=== PATIENT | male | born 1940 | race Caucasian/White ===

== ENCOUNTER 2018-10-11 07:08 | Inpatient (IN) ==
--- NOTE | 2018-09-19 17:29 | PAT Medication Instructions ---
Medication Instructions Date of Service September 19, 2018 Home Medications aspirin 81 mg PO QPM doxycycline hyclate 100 mg PO BID fluticasone [Flonase] 1 spray INTRANASAL BID glimepiride 4 mg PO QAM insulin detemir U-100 [Levemir] 35 unit SUBCUT BID lisinopril 30 mg PO QPM metformin 1,000 mg PO BID naproxen sodium [Aleve] 1 - 2 tab PO QAM ASK your surgeon for instructions naproxen sodium [Aleve] 1 - 2 tab PO QAM DO NOT take the morning of surgery glimepiride 4 mg PO QAM metformin 1,000 mg PO BID Take morning of surgery With a small sip of water, OTHERWISE NOTHING TO EAT OR DRINK AFTER MIDNIGHT: doxycycline hyclate 100 mg PO BID fluticasone [Flonase] 1 spray INTRANASAL BID Take evening before surgery aspirin 81 mg PO QPM doxycycline hyclate 100 mg PO BID fluticasone [Flonase] 1 spray INTRANASAL BID insulin detemir U-100 [Levemir] 35 unit SUBCUT BID lisinopril 30 mg PO QPM metformin 1,000 mg PO BID Insulin Dependent Diabetic Patients * Test your blood sugar the morning of surgery * If Blood Sugar is GREATER THAN 150, take HALF of your regular dose of: insulin detemir U-100 [Levemir] * If Blood Sugar is LESS THAN 150, DO NOT TAKE ANY: insulin detemir U-100 [Levemir] Other Notes If you have any questions please call us at [phone] or [phone] or [phone] or [phone]
--- NOTE | 2018-09-20 13:30 | Anesthesiology Consultation ---
Date of Service September 20, 2018 Assessment & Plan (1) Encounter for pre-operative examination: - Cardio note= 09/25/18= "EKG is unchanged from 2015. ECHO done 04/10/18 shows EF 45-50%, mod-severe with mod-severe AR (MG 41, CHAVEZ 0.6cm2), mild MR per Dr. Alex- pt cleared for surgery." Cardio monitoring valvular disease; no indication for valve repair/surgery at this time. - Check BSG AM DOS Chart Review Chart Review: Acceptable Risk for Surgery and Patient seen in Pre Admission Testing Teaching & Discussion Pre-Anesthesia Teaching/Discussion Notes: Instructed NPO after midnight before s urgery,except medications with 15 cc of water. Medication instructions provided according to the PAT guidelines. History Surgery Operation Date: 10/11/18 07:45 Proposed Procedures p L2-L4 Decompression and Fusion - Lalo Montano DO Height/Weight Height: 5 ft 7.5 in Weight: 80.2 kg Allergies Allergy/AdvReac Type Severity Reaction Status Date / Time Penicillins Allergy Intermediate Hives Verified 09/16/18 09:46 Medications Home Medications Medication Instructions Recorded Confirmed Last Taken aspirin 81 mg PO QPM 09/16/18 09/16/18 Unknown doxycycline hyclate 100 mg PO BID 09/16/18 09/16/18 Unknown fluticasone propionate [Flonase 1 spray INTRANASAL BID 09/16/18 09/16/18 Unknown Allergy Relief] glimepiride 4 mg PO QAM 09/16/18 09/16/18 Unknown insulin detemir U-100 [Levemir 35 unit SUBCUT BID 09/16/18 09/16/18 Unknown U-100 Insulin] lisinopril 30 mg PO QPM 09/16/18 09/16/18 Unknown metformin 1,000 mg PO BID 09/16/18 09/16/18 Unknown naproxen sodium [Aleve] 1 - 2 tab PO QAM 09/16/18 09/16/18 Unknown Past Medical History Medical History Aortic regurgitation Moderate to severe AR per 04/2018 ECHO Aortic stenosis Moderate to severe aortic stenosis (CHAVEZ 0.6cm2, MG 41mmhg) per 04/2018 ECHO Bifascicular block CHRONIC PER CARDIO CAD (coronary artery disease) NON-OBSTRUCTIVE Degenerative disc disease Diabetes mellitus, type 2 IDDM Hypertension Osteoarthritis Past Family History Family History Father Family history of diabetes mellitus Son Family history of diabetes mellitus Mother Family history of diabetes mellitus Grandmother (Paternal) No problems noted. Grandmother (Maternal) Family history of diabetes mellitus Past Surgical History Surgical History History of appendectomy History of cardiac cath 2016= NO STENTS History of ear surgery LEFT EAR DRUM REPAIR History of tonsillectomy History of tooth extraction Past Anesthesia History No Hx of Anesthesia Complications and No Family Hx of Anesthesia Complications History of PONV No Motion Sickness Screening History of Motion Sickness: No Social History Smoking Status: Never smoker Do You Dip or Chew Tobacco: Yes (1 CAN/WEEK- NOT TO CHEW AM DOS) Hx Alcohol Use: No Hx Substance Use: No substance use type: does not use Exercise / Class Metabolic Activity III < 4 Walking/Shop/Light housework (USES CANE/WALKER PRN) Review of Systems Patient reports LBP. B/L LE neuropathy. Sinusitis/URI symptoms improving- on doxycycline (to be completed prior to surgery). Patient denies chest pain, shortness of breath, wheezing, palpitations. Physical Exam Vital Signs VITALS BP 102/65 P 91 TEMP 97.5 SP02 95%RA RESP 18 PHYSICAL Full neck and c-spine range of motion. Full TMJ range of motion. TMD 3 finger breaths Mallampati Score 3 Dentition: full dentures upper/lower; edentulous Lungs: clear throughout to auscultation Cardiac: regular rate and rhythm, I-II/ systolic murmur Spine: normal Carotid arteries: negative bruit Extremities: no edema Trimmed wei Testing Electrocardiogram Date: 09/20/18 NSR at 92bpm. RBBB/LAFB. *Bifasicular block*, Moderate voltage criteria for LVH, may be normal variant. Chest X-Ray Date: 09/20/18 Echocardiogram Date: 04/10/18 LVEF 45-50%. Moderate to severe aortic regurgitation. Moderate to severe aortic stenosis (CHAVEZ 0.6cm2, MG 41mmhg). Mild MR. Consistent with LVH. Abnormal septal wall consistent with abnormal electrical activation. Dilated ascending aorta. Grade I DD. Stress Test Date: 07/24/16 Type: exercise LVEF 45-50%. Positive EKG for ischemia. Severe symptomatic aortic stenosis with rest MG 41mmhg increased to 69mmhg with exercise. 4 METS. Subsequent cardiac cath done 1/27/17 Cardiac Catheterization Date: 08/04/16 LVEF 55%. Normal right heart cath. Mild nonobstructive CAD. Moderate to severe aortic stenosis Medical management recommended by cardio* Laboratory Results 09/20/18 13:57 09/20/18 13:57 Blood Type AB Positive 09/20/18 13:57 Antibody Screen NEGATIVE 09/20/18 13:57 PT 11.3 Seconds (9.0-12.0) 09/20/18 13:57 INR 1.1 (0.9-1.1) 09/20/18 13:57 APTT 24.8 Seconds (21.0-31.0) 09/20/18 13:57 Hemoglobin A1c 7.8 % (4.5-5.6) H 09/20/18 13:57 Urine Color Dark Yellow 09/20/18 Unknown Urine Appearance Clear (Clear) 09/20/18 Unknown Urine pH 5.0 (4.5-7.5) 09/20/18 Unknown Ur Specific [place] 1.025 (1.000-1.030) 09/20/18 Unknown Urine Protein Trace (Negative) H 09/20/18 Unknown Urine Glucose (UA) Negative (Negative) 09/20/18 Unknown Urine Ketones Negative (Negative) 09/20/18 Unknown Urine Nitrite Negative (Negative) 09/20/18 Unknown Ur Leukocyte Esterase Negative (Negative) 09/20/18 Unknown Urine WBC (Auto) 1-5 /hpf (0-5) 09/20/18 Unknown Urine RBC (Auto) 5-10 /hpf (0-4) H 09/20/18 Unknown U Hyaline Cast (Auto) 5-10 /lpf (0-5) H 09/20/18 Unknown U Epithel Cells (Auto) 5-10 /lpf (0-5) H 09/20/18 Unknown Urine Bacteria (Auto) Negative (Negative) 09/20/18 Unknown Surgeon made aware of elevated HGBA1C
[2018-09-20 14:19] LABS: Basophils # (auto) 0.03 K/uL (0-0.2); Basophils % (auto) 0.4 %; Eosinophils # (auto) 0.05 K/uL (0-0.5); Eosinophils % (auto) 0.6 %; Hematocrit (blood only) 37.9 % (42-52); Hemoglobin 12.7 g/dL (14.0-18.0); Immature Granulocytes # (auto) 0.03 K/uL (0.00-0.02); Immature Granulocytes % (auto) 0.4 %; Lymphocytes # (auto) 1.03 K/uL (1.2-3.4); Lymphocytes % (auto) 12.9 %; Mean Corpuscular Hgb Conc 33.5 g/dL (32-36); Mean Corpuscular Volume 90.9 fL (80-100); Mean Platelet Volume 9.1 fL (7.4-10.4); Monocytes # (auto) 0.75 K/uL (0.11-0.59); Monocytes % (auto) 9.4 %; Neutrophils # (auto) 6.08 K/uL (1.4-6.5); Neutrophils % (auto) 76.3 %; Platelet Count 226 K/uL (130-400); RDW Coefficient of Variation 14.2 % (11.5-14.5); RDW Standard Deviation 47.3 fL (36.4-46.3); Red Blood Count 4.17 M/uL (4.7-6.1); White Blood Count 7.97 K/uL (4.8-10.8)
--- NOTE | 2018-09-20 14:24 | XRay Report ---
XR chest Pre-admission PA/Lat CLINICAL HISTORY: 77 years-old Male presenting with preoperative evaluation. TECHNIQUE: PA and lateral views of the chest were obtained. COMPARISON: None. FINDINGS: Cardiomediastinal silhouette normal. Lungs and pleural spaces clear. Degenerative changes of the thor acic spine. Upper abdomen normal. IMPRESSION: 1. No acute cardiopulmonary disease. Electronically signed by: Richar Suarez M.D. 09/20/2018 2:23 PM
[2018-09-20 14:26] LABS: BUN Creatinine Ratio 19.9 (10-20); Calcium 9.1 mg/dl (8.5-10.1); Est GFR (African American) 87.9; Est GFR (Non-African American) 75.8; Potassium 4.6 mmol/L (3.5-5.1)
[2018-09-20 14:34] LABS: INR 1.1 (0.9-1.1); Partial Thromboplastin Ratio 0.9; Partial Thromboplastin Time 24.8 Seconds (21.0-31.0); Prothrombin Time 11.3 Seconds (9.0-12.0)
[2018-09-20 14:53] LABS: Appearance Urine Clear (Clear); Bacteria Urine Automated Negative (Negative); Bilirubin Urine Negative (Negative); Blood Urine Negative (Negative); Color Urine Dark Yellow; Glucose Urine UA Negative (Negative); Ketones Urine Negative (Negative); Leukocyte Esterase Urine Negative (Negative); Nitrite Urine Negative (Negative); Protein Urine Trace (Negative); Specific Gravity Urine 1.025 (1.000-1.030); Urobilinogen Urine Negative (Negative)
[2018-09-20 14:59] LABS: Estimated Average Glucose 177 mg/dl; Hemoglobin A1C 7.8 % (4.5-5.6)
[~2018-10-11 07:08] MED LIST: ACETAMINOPHEN 500 MG TAB PO SCH; CLINDAMYCIN 600 MG/54 ML BAG IV SCH; CeleBREX 200 MG CAP PO SCH; GABAPENTIN 300 MG PO SCH; LR 15ML/HR IV SCH
[2018-10-11] MEDS ORDERED: fentaNYL citrate 100 MCG/2 ML VIAL ONE ×2 (08:14→11:32)
--- NOTE | 2018-10-11 09:06 | History & Physical Bridge Note ---
Date of Service October 11, 2018 History & Physical Bridge Note I have examined the patient, reviewed the History & Physical and in the interval since the performance of the History & Physical I have noted the following changes of clinical significance: no changes noted
--- NOTE | 2018-10-11 09:07 | History & Physical Report ---
Date of Service October 11, 2018 Assessment & Plan (1) Spinal stenosis, lumbar region with neurogenic claudication: L2-L4 decompression and fusion Present on Admission?: Yes History of Present Illness Chief Complaint: Back and leg pain Primary Care Provider: Roberto Dunham MD Presents with chronic persistent back and leg pain. After failing extensive course of nonoperative care is here for surgical intervention. Allergies Allergy/AdvReac Type Severity Reaction Status Date / Time Penicillins Allergy Intermediate Hives Verified 10/11/18 07:56 Home Medications Home Medications Medication Instructions Recorded Confirmed Type aspirin 81 mg PO QPM 09/16/18 10/11/18 History fluticasone propionate [Flonase 1 spray INTRANASAL BID 09/16/18 10/11/18 History Allergy Relief] glimepiride 4 mg PO QAM 09/16/18 10/11/18 History insulin detemir U-100 [Levemir 35 unit SUBCUT BID 09/16/18 10/11/18 History U-100 Insulin] lisinopril 30 mg PO QPM 09/16/18 10/11/18 History metformin 1,000 mg PO BID 09/16/18 10/11/18 History naproxen sodium [Aleve] 1 - 2 tab PO QAM 09/16/18 10/11/18 History Fish Oil 1 cap PO BID 10/11/18 10/11/18 History Past Med/Surg History Family History Father Family history of diabetes mellitus Son Family history of diabetes mellitus Mother Family history of diabetes mellitus Grandmother (Paternal) No problems noted. Grandmother (Maternal) Family history of diabetes mellitus Social History Preferred Language: Tristanian Communication Ability: Effective Cycle Touring Guide Required: No Beliefs That Will Affect Care: None Current Living Situation: Spouse Other Information That Helps Us Care for You: No Feels Safe at Home: Yes Safety Concerns: Feels Safe At This Time Smoking Status: Never smoker Hx Alcohol Use: No Hx Substance Use: No Physical Exam Vital Signs (Past 24 Hours): Last Vital Signs Temp 36.8 C 10/11/18 07:35 Pulse 78 10/11/18 07:35 Resp 20 10/11/18 07:35 BP 138/63 10/11/18 07:35 Pulse Ox 98 10/11/18 07:35 Results & Data Medications Administered Acetaminophen (Tylenol) 1,000 mg PO PREOP ANSHU Stop: 10/11/18 18:00 Last Admin: 10/11/18 08:32 Dose: 1,000 mg Documented by: [id number] Celecoxib (Celebrex) 200 mg PO PREOP ANSHU Stop: 10/11/18 18:00 Last Admin: 10/11/18 08:32 Dose: 200 mg Documented by: [id number] Gabapentin (Neurontin) 300 mg PO PREOP ANSHU Stop: 10/11/18 18:00 Last Admin: 10/11/18 08:32 Dose: 300 mg Documented by: [id number] Lactated Ringer's (Lr) 1,000 mls @ 15 mls/hr IV .Q24H ANSHU Stop: 10/12/18 05:59 Last Admin: 10/11/18 08:13 Dose: 15 mls/hr Documented by: [id number]
[2018-10-11] MEDS ORDERED: BUPIVACAINE/EPINEPHRINE 0.5% MPF 1:200,000 30 ML VIAL ONE (09:17)
[2018-10-11] MEDS ORDERED: BACITRACIN INJ 50,000 UNIT VIAL ONE (09:17)
[2018-10-11] MEDS ORDERED: FLOSEAL HEMOSTATIC MATRIX 10ML TOP ONE (10:13)
[2018-10-11] MEDS ORDERED: ALBUMIN HUMAN 5% 12.5 GM/250 ML VIAL IV ONE (10:13)
[2018-10-11] MEDS ORDERED: ePHEDrine sulfate 50 MG/ML AMP IV PRN (10:13)
[2018-10-11] MEDS ORDERED: fentaNYL citrate 100 MCG/2 ML VIAL IV PRN (10:13)
[2018-10-11] MEDS ORDERED: HYDROmorphone INJ 2 MG/ML SYR/VIAL IV PRN (10:13)
[2018-10-11] MEDS ORDERED: ATROPINE SULFATE 0.1 MG/ML 10ML SYR IV PRN (10:13)
[2018-10-11] MEDS ORDERED: ROCURONIUM BROMIDE 10 MG/ML 5 ML VIAL ONE (10:21)
[2018-10-11] MEDS ORDERED: ONDANSETRON INJ 2 MG/ML 2 ML VIAL ONE (10:21)
[2018-10-11] MEDS ORDERED: PHENYLEPHRINE 100MCG/ML 5ML SYR ONE (10:21)
[2018-10-11] MEDS ORDERED: NEOSTIGMINE METHYLSULFATE 1 MG/ML 10ML VIAL ONE (10:21)
[2018-10-11] MEDS ORDERED: ePHEDrine sulfate 50 MG/ML SYR ONE (10:21)
[2018-10-11] MEDS ORDERED: DEXAMETHASONE SOD INJ 4 MG/ML VIAL ONE (10:21)
[2018-10-11] MEDS ORDERED: LIDOCAINE HCL 2% 2 ML VIAL/AMP(20MG/ML) INFIL ONE (10:21)
[2018-10-11] MEDS ORDERED: PHENYLEPHRINE HCL 10 MG/ML VIAL ONE (10:21)
[2018-10-11] MEDS ORDERED: GLYCOPYRROLATE 0.2 MG/ML VIAL ONE (10:21)
[2018-10-11] MEDS ORDERED: PROPOFOL IV EMULSION 10 MG/ML 20 ML VIAL IV ONE (10:21)
[2018-10-11] MEDS ORDERED: HYDROmorphone INJ 2 MG/ML SYR/VIAL ONE (10:26)
--- NOTE | 2018-10-11 12:25 | Operative Report ---
Post Operative Report Pre & Post Diagnosis Operation Date: 10/11/18 09:05 Pre-Op Diagnosis: Spinal Stenosis, Lumbar Region with Neurogenic Claudication Post-Op Diagnosis: Spinal Stenosis, Lumbar Region with Neurogenic Claudication Procedure Operation Date: 10/11/18 09:05 Actual Procedures p L2-L5 Decompression and Fusion, L3-L4 Interbody (Not Applicable) - Lalo Montano DO Surgeon Lalo Montano DO Drill Press Operator Sridhar Hernandez Estimated Blood Loss 300 Findings Consistent with Post-Op Diagnosis Specimens None Description of Procedure Patient was met with preoperatively case discussed all questions addressed. After informed consent obtained patient was taken to the operative suite underwent intubation and placed in the prone position on the Jesus table on top of the Hayden frame. All bony prominences well-padded. Eyes inspected to ensure there is no external pressure placed upon the peer at this point lumbar spine is prepped and draped in normal sterile fashion. Sharp dissection with the assistance of bradycardia was performed down to and exposing the lamina and transverse process of L2-L3-L4 L5 bilaterally from a caudal cephalad fashion complete laminectomy of L4 L3 L2 was performed including bilateral medial facetectomies and foraminotomies to address severe stenosis. Pedicle screw was then placed in L to L3-L4-L5 bilaterally with assistance of fluoroscopy and the purposes brayan placed. By way of a transforaminal approach and left complete discectomy was performed at L3-4 endplates curetted to subcortical mean bone and a 11 x 26 mm titanium cage filled with ostium bone graft tapped in position. Rods and locked in final position bilaterally. Transverse processes of L2 L3-L4-L5 bur to subcortical bleeding bone. Infuse collagen sponge mass graft local autograft placed in the posterior lateral gutters. Incision was then closed with 1 Vicryl in the fascia 2-0 Vicryl subcutaneous and 4 Monocryl for final skin closure. Steri-Strip sterile dressings placed. Patient will continue to PACU stable addition please note Sridhar Hernandez assisted through complex portions of the surgery and final skin closure. I attest to the content of the Intraoperative Record and any orders documented therein. Any exceptions are noted below.
--- NOTE | 2018-10-11 13:01 | Fluoroscopy Report ---
LUMBAR SPINE, INTRAOPERATIVE FLUOROSCOPY HISTORY: L2-L5 decompression and fusion. FLUOROSCOPY TIME: 21 seconds. FINDINGS: Intraoperative fluoroscopy was provided for the lumbar spine. 3 fluoroscopic spot images we re obtained. Posterior decompression and fusion from L2 to L5 with pedicle screws and rods. The hardw are appears intact. IMPRESSION: Fluoroscopy provided for a L2-L5 posterior decompression and fusion. Electronically signed by: Nathan Vera M.D. 10/11/2018 1:00 PM
--- NOTE | 2018-10-11 13:37 | Anesthesiology Progress Note ---
Date of Service October 11, 2018 Anesthesia Post Procedure Vital Signs Vital Signs: Temp Pulse Pulse Resp BP Pulse Ox 10/11/18 13:20 90 16 145/72 H 100 10/11/18 13:10 87 16 151/85 H 100 10/11/18 13:00 91 H 16 137/64 100 10/11/18 12:54 36.6 C 87 16 149/60 H 100 10/11/18 07:35 36.8 C 78 20 138/63 98 Pain Intensity Lower Back: Pain Intensity: 2 Notes Mental Status: alert / awake / arousable and participated in evaluation Patient Amnestic to Procedure: Yes Nausea / Vomiting: adequately controlled Pain: adequately controlled Airway Patency, RR, SpO2: stable & adequate BP & HR: stable & adequate Hydration State: stable & adequate Anesthetic Complications: no major complications apparent
[2018-10-11] MEDS ORDERED: PROMETHAZINE HCL 12.5 MG in SODIUM CHLORIDE 0.9% 50 ML IV PRN (13:55)
[2018-10-11] MEDS ORDERED: ONDANSETRON INJ 2 MG/ML 2 ML VIAL IV PRN (13:55)
[2018-10-11] MEDS ORDERED: LORazepam 0.5 MG/1 ML VIAL IV PRN (13:55)
[2018-10-11] MEDS ORDERED: DO NOT ADMINISTER FLU VACCINE PRN (13:55)
[2018-10-11] MEDS ORDERED: ONDANSETRON 4 MG OD TAB PO PRN (13:55)
[2018-10-11] MEDS ORDERED: OXYCODONE HCL IR 5 MG TAB (IMMEDIATE RELEASE) PO PRN (13:55)
[2018-10-11] MEDS ORDERED: ACETAMINOPHEN 1,000 MG/100 ML VIAL IV PRN (13:55)
[2018-10-11] MEDS ORDERED: SOD PHOSPHATE/SOD BIPHOSPHATE ENEMA 132 ML BTL PR PRN (13:55)
[2018-10-11] MEDS ORDERED: METOCLOPRAMIDE HCL INJ 5 MG/ML 2 ML VIAL IV PRN (13:55)
[2018-10-11] MEDS ORDERED: DO NOT ADMINISTER PNEUMOCOCCAL VACCINE PRN (13:55)
[2018-10-11] MEDS ORDERED: FAMOTIDINE 20 MG TAB PO PRN (13:55)
[2018-10-11] MEDS ORDERED: LORazepam 0.5 MG TAB PO PRN (13:55)
[2018-10-11] MEDS ORDERED: MAGNESIUM HYDROXIDE SUSP 30 ML UDC PO PRN (13:55)
[2018-10-11] MEDS ORDERED: TRAMADOL HCL 50 MG TABLET PO PRN (13:55)
[2018-10-11] MEDS ORDERED: ALUMINUM/MAGNESIUM SUSP 30 ML UDC PO PRN (13:55)
[2018-10-11] MEDS ORDERED: ACETAMINOPHEN 500 MG TAB PO PRN (13:55)
[2018-10-11] MEDS ORDERED: HYDROmorphone INJ 0.5 MG/0.5 ML SYR IV PRN (13:55)
[2018-10-11] MEDS ORDERED: BISACODYL 10 MG SUPP PR PRN (13:55)
[2018-10-11] MEDS: SODIUM CHLORIDE 0.9% 1000ML 1,000 ML IV SCH ×2 (14:32→21:45)
[2018-10-11] MEDS ORDERED: GLUCOSE 40% GEL 15 GM TUBE PO PRN (14:54)
[2018-10-11] MEDS ORDERED: GLUCOSE 10 TABS/TUBE PO PRN (14:54)
[2018-10-11] MEDS ORDERED: CARBOHYDRATES FOR HYPOGLYCEMIA PO PRN (14:54)
[2018-10-11] MEDS ORDERED: DEXTROSE 50% 50 ML SYRINGE IV PRN (14:54)
[2018-10-11] MEDS ORDERED: GLUCAGON FOR INJ 1 MG VIAL SQ PRN (14:54)
--- NOTE | 2018-10-11 15:00 | Consultation ---
Date of Consultation October 11, 2018 Assessment & Plan (1) Status post lumbar surgery: Post op day# 0 S/P L2-L5 decompression and fusion by Dr Montano EBL #300ml -pain management per ortho -wound management per ortho -PT/OT as appropriate -DVT prophylaxis per ortho -incentive spirometry -monitor H&H for acute blood loss anemia (2) Diabetes mellitus, type II: A1c: 7.8 on 09/20/18 Insulin dependent -Pt received dexamethasone 12mg intraoperatively -Lantus, Novolog sliding scale (3) CAD (coronary artery disease): Hx nonobstructive CAD. [facility] -will hold lisinopril tonight since post-op (4) HTN (hypertension): Stable with BP: 129/66 -hold lisinopril tonight while post-op -monitor BP DVT Prophylaxis -SCDs per ortho Follows with Dr Roberto Dunham at [facility] for routine care Pt was seen with Dr Carbajal. See addendum Pt will be followed by Dr Elizabeth during remaining hospital course. Thank you for this consultation. We will follow the patient with you during their hospital stay. You can reach a [facility] via pager @ [phone]. Supervising Physician Co-Signing Physician Notes I have seen and examined the patient and have discussed the case with the provider above. I agree with the assessment and plan as stated. DO Solomon History of Present Illness Reason for Consultation: Post op medical management Attending Physician: Lalo Montano DO History of Present Illness Pt is 77 y/o M with PMH nonobstructive CAD, moderate-severe aortic stenosis, moderate aortic regurgitation, moderate tricuspid regurgitation, carotid artery disease, HTN, DM II seen for post op medical management s/p L2-L5 decompression and fusion today by Dr Montano. Post op pt reports doing well and feels pain is controlled. Denies numbness/tingling of extremities. Reports last BM yesterday. Currently has arango cath in place. Denies nausea or vomiting and is eating and drinking. Denies fever/chills,CASTILLO, dizziness, CP, SOB, palpitations, cough, sore throat, choking, abdominal pain, extremity edema. Allergies Allergy/AdvReac Type Severity Reaction Status Date / Time Penicillins Allergy Intermediate Hives Verified 10/11/18 07:56 Home Medications Home Medications Medication Instructions Recorded Confirmed Type aspirin 81 mg PO QPM 09/16/18 10/11/18 History fluticasone propionate [Flonase 1 spray INTRANASAL BID 09/16/18 10/11/18 History Allergy Relief] glimepiride 4 mg PO QAM 09/16/18 10/11/18 History insulin detemir U-100 [Levemir 35 unit SUBCUT BID 09/16/18 10/11/18 History U-100 Insulin] lisinopril 30 mg PO QPM 09/16/18 10/11/18 History metformin 1,000 mg PO BID 09/16/18 10/11/18 History naproxen sodium [Aleve] 1 - 2 tab PO QAM 09/16/18 10/11/18 History Fish Oil 1 cap PO BID 10/11/18 10/11/18 History Patient History Medical History Osteoarthritis (Chronic) Degenerative disc disease (Chronic) Diabetes mellitus, type II (Chronic) Tricuspid regurgitation (Chronic) Carotid artery disease (Chronic) Aortic regurgitation (Chronic) Aortic stenosis (Chronic) CAD (coronary artery disease) (Chronic) HTN (hypertension) (Chronic) Bifascicular block CHRONIC PER CARDIO Surgical History History of cardiac cath (Chronic) 2017= NO STENTS History of ear surgery (Chronic) LEFT EAR DRUM REPAIR History of tooth extraction (Chronic) History of appendectomy (Chronic) Hx of tonsillectomy (Chronic) Family History Father Family history of diabetes mellitus Son Family history of diabetes mellitus Mother Family history of diabetes mellitus Grandmother (Paternal) No problems noted. Grandmother (Maternal) Family history of diabetes mellitus Social History Communication Ability: Effective Beliefs That Will Affect Care: None marital status: Current Living Situation: Spouse Other Information That Helps Us Care for You: No Feels Safe at Home: Yes Safety Concerns: Feels Safe At This Time Smoking Status: Never smoker Hx Alcohol Use: No Hx Substance Use: No Review of Systems As per HPI, other systems reviewed and negative Physical Exam Vital Signs (Past 24 Hours): Last Vital Signs Temp 37.2 C 10/11/18 14:30 Pulse 91 H 10/11/18 14:30 Resp 16 10/11/18 14:30 BP 160/67 H 10/11/18 14:30 Pulse Ox 97 10/11/18 14:30 Physical Exam: General: no distress, WDWN Head: normocephalic, atraumatic Eyes: conjunctiva non-injected, anicteric ENT: normal inspection external ears, nose, mucous membranes moist Neck: supple, trachea midline Lungs: clear, no respiratory distress, no wheezing/rhonchi/rales CV: RRR, systolic murmur, no pretibial edema Abd: normal BS, soft, non-tender Ext: no cyanosis, no calf tenderness. bilateral pedal pushes and pulls intact, distal pulses intact, sensation to light touch intact Neuro: A&O x 3, no focal deficits noted, normal affect Skin: warm, dry
[2018-10-11] MEDS: CLINDAMYCIN 600 MG in DEXTROSE 5% 50 ML IV SCH (17:29)
[2018-10-11] MEDS: INSULIN ASPART 100 UNITS/ML 3 ML PEN SC SCH ×2 (18:13→21:25)
[2018-10-11] MEDS ORDERED: INSULIN GLARGINE SOLOSTAR 100 UNITS/ML 3 ML PEN SC SCH ×2 (21:00→23:56)
[2018-10-11] MEDS: OMEGA-3 (PURIFIED FISH OIL) 1 GM CAP PO SCH (21:22)
[2018-10-11] MEDS: ASPIRIN 81 MG ECTAB PO SCH (21:22)
[2018-10-11] MEDS: DOCUSATE SODIUM/SENNA 50/8.6MG TAB PO SCH (21:22)
[2018-10-11] MEDS: FLUTICASONE PROPIONATE NA SPR 16 GM BTL SCH (21:22)
[2018-10-12] MEDS ORDERED: INSULIN HUMAN REGULAR PER UNIT 7 UNITS in SYRINGE 6.93 ML IV SCH (00:30)
[2018-10-12] MEDS ORDERED: INSULIN ASPART 100 UNITS/ML 3 ML PEN SC STA (00:30)
[2018-10-12] MEDS ORDERED: PHARMACY GLYCEMIC MGMT CONSULT PRN (00:50)
[2018-10-12] MEDS: CLINDAMYCIN 600 MG in DEXTROSE 5% 50 ML IV SCH (01:46)
[2018-10-12] MEDS ORDERED: INSULIN ASPART 100 UNITS/ML 3 ML PEN SC SCH (04:00)
[2018-10-12] MEDS: POLYETHYLENE (MIRALAX) 17 GM PACK PO SCH ×4 (04:58→23:31)
[2018-10-12] MEDS: SODIUM CHLORIDE 0.9% 1000ML 1,000 ML IV SCH (05:00)
[2018-10-12 06:16] LABS: Basophils # (auto) 0.01 K/uL (0-0.2); Basophils % (auto) 0.1 %; Eosinophils # (auto) 0.01 K/uL (0-0.5); Eosinophils % (auto) 0.1 %; Hemoglobin 9.1 g/dL (14.0-18.0); Immature Granulocytes # (auto) 0.02 K/uL (0.00-0.02); Immature Granulocytes % (auto) 0.3 %; Lymphocytes # (auto) 0.71 K/uL (1.2-3.4); Lymphocytes % (auto) 9.4 %; Mean Corpuscular Hgb Conc 33.7 g/dL (32-36); Mean Corpuscular Volume 91.5 fL (80-100); Mean Platelet Volume 9.2 fL (7.4-10.4); Monocytes # (auto) 0.73 K/uL (0.11-0.59); Monocytes % (auto) 9.6 %; Neutrophils # (auto) 6.09 K/uL (1.4-6.5); Neutrophils % (auto) 80.5 %; Platelet Count 138 K/uL (130-400); RDW Coefficient of Variation 14.3 % (11.5-14.5); RDW Standard Deviation 48.3 fL (36.4-46.3); Red Blood Count 2.95 M/uL (4.7-6.1); White Blood Count 7.57 K/uL (4.8-10.8)
[2018-10-12 06:35] LABS: BUN Creatinine Ratio 18.1 (10-20); Creatinine Clr Calc Pharmacy 60.4 ml/min; Est GFR (African American) 80.6; Est GFR (Non-African American) 69.6; Potassium 4.4 mmol/L (3.5-5.1)
[2018-10-12] MEDS: OMEGA-3 (PURIFIED FISH OIL) 1 GM CAP PO SCH ×2 (08:36→20:38)
[2018-10-12] MEDS: FLUTICASONE PROPIONATE NA SPR 16 GM BTL SCH ×2 (08:36→20:34)
[2018-10-12] MEDS: INSULIN ASPART 100 UNITS/ML 3 ML PEN SC SCH ×4 (08:39→20:34)
[2018-10-12] MEDS ORDERED: INSULIN GLARGINE SOLOSTAR 100 UNITS/ML 3 ML PEN SC SCH (09:00)
[2018-10-12] MEDS ORDERED: GLIMEPIRIDE 2 MG TAB PO SCH (09:00)
--- NOTE | 2018-10-12 09:53 | Anesthesiology Progress Note ---
Date of Service October 12, 2018 Anesthesia Post Procedure Vital Signs Vital Signs: Temp Pulse Pulse Resp BP Pulse Ox 10/12/18 06:59 36.5 C 73 18 108/59 L 99 10/12/18 03:37 36.7 C 78 18 95/50 L 96 10/11/18 23:07 36.7 C 82 19 94/52 L 98 10/11/18 19:43 36.8 C 87 18 117/65 96 10/11/18 17:01 36.6 C 90 18 122/68 100 10/11/18 16:03 36.7 C 98 H 18 132/65 95 10/11/18 14:57 36.8 C 97 H 16 129/66 93 10/11/18 14:30 37.2 C 91 H 16 160/67 H 97 10/11/18 14:00 36.7 C 89 16 135/66 98 10/11/18 13:40 36.5 C 90 16 132/78 97 10/11/18 13:30 36.8 C 83 16 144/71 H 97 10/11/18 13:20 90 16 145/72 H 100 10/11/18 13:10 87 16 151/85 H 100 10/11/18 13:00 91 H 16 137/64 100 10/11/18 12:54 36.6 C 87 16 149/60 H 100 Pain Intensity Lower Back: Pain Intensity: 2 Notes Mental Status: alert / awake / arousable and participated in evaluation Patient Amnestic to Procedure: Yes Nausea / Vomiting: adequately controlled Pain: adequately controlled Airway Patency, RR, SpO2: stable & adequate BP & HR: stable & adequate Hydration State: stable & adequate Anesthetic Complications: no major complications apparent and Pt Satisfied with anesthetic care
--- NOTE | 2018-10-12 09:57 | Orthopedic Progress Note ---
Date of Service October 12, 2018 Assessment & Plan (1) Spinal stenosis, lumbar region with neurogenic claudication: This time we will continue physical therapy monitor his TRACY output. Assess his progress to determine if he is a candidate for rehab versus home Sunday or Sunday. Present on Admission?: Yes (2) Acute blood loss as cause of postoperative anemia: Present on Admission?: No Subjective Patient's back pain is controlled leg symptoms improved. Physical Exam Vital Signs (Past 24 Hours): Last Vital Signs Temp 36.5 C 10/12/18 06:59 Pulse 73 10/12/18 06:59 Resp 18 10/12/18 06:59 BP 108/59 L 10/12/18 06:59 Pulse Ox 99 10/12/18 06:59 Physical Exam: On exam he is in the chair at the bedside. Is good strength testing. Appears comfortable.
--- NOTE | 2018-10-12 10:43 | Pharmacy Report ---
Glycemic Control Consultation - Date of Service October 12, 2018 - Scope Scope: Glycemic Pharmacist consulted by Dr Mckeon on 10/12/18 for glycemic control and to write orders per [facility] inpatient glycemic control protocol - Objective Weight: 80.9 kg Accuchecks BSG (last 24hrs): 10/11/18 10/11/18 10/11/18 13:03 16:59 20:59 Glucose POC Glucose 210 H 291 H 429 H* 10/11/18 10/11/18 10/12/18 21:01 23:45 04:08 Glucose POC Glucose 418 H* 357 H* 241 H 10/12/18 10/12/18 05:49 08:02 Glucose 194 H POC Glucose 168 H Laboratory Data (last 24hrs): 10/12/18 05:49 Potassium 4.4 Carbon Dioxide 28 Anion Gap 6.0 Creatinine 1.02 Est Cr Clr Drug Dosing 60.4 HbA1c: Hemoglobin A1c 7.8 % (4.5-5.6) H 09/20/18 13:57 - Recent Pertinent Medications Outpatient Anti-diabetic Regimen: * Levemir 35 units SQ BID * glimepiride 4 mg daily * metformin 1 gm PO BID * A1c = 7.8 % 09/20/18 The patient is currently receiving: * Basal insulin: Lantus 35 units every 12 hours * Correctional Insulin: Novolog Correction per scale ACHS Goal Range: Low 110 mg/dL - High 140 mg/dL Correction Factor: 20 mg/dL/unit * Prandial insulin: Per carb ratio of 1 unit per 6 grams CHO consumed Risk Factors for Insulin Resistance: * Steroids: dexamethasone 12 mg intraoperatively * Recent Surgery: POD 1 for lumbar surgery * Diet: T2DM - Assessment & Plan Assessment & Plan: ASSESSMENT: * Mr Alejandro is a 77 y/o M with a PMH of relatively well controlled T2DM who presents for lumbar surgery with Dr Montano. Patient last took his home Levemir in the evening. Fasting was 124 mg/dL indicating that 35 units SQ BID may be appropriate for him; although it is most definitely handling post- prandial blood spikes. * Patient received his typical 35 units of basal insulin yesterday (although it is Lantus in the hospital) plus was started on weight-based stress of 3 Novolog. Blood sugars after dinner were in the 400s and overnight patient received about 17 extra units of Novolog until patient was around 200 mg/dL this morning. Will restart home dose of basal insulin plus slightly extra this morning as the patient is basal deficient from yesterday. Provide a scale for this evening. * Since patient received steroids yesterday, will start Novolog based upon basal insulin needs of 70 units. * Pt is maintained on oral antidiabetic agents as an outpatient * Oral agents are not recommended for inpatient use d/t drug interactions, changing PO intake, and difficulty titrating for acute hyper/hypoglycemia. ADA recommends re-initiating outpatient oral agents 1-2 days prior to discharge if/when appropriate if they were held on admission. * Will hold oral agents for admission and utilize SQ basal bolus insulin regimen which is the recommended regimen for inpatient glycemic control. * Will initiate weight based insulin dosing for insulin susanne patient and titrate based on BSG trends. PLAN FOR INPATIENT GLYCEMIC CONTROL: * Holding outpatient oral diabetes medications * Basal insulin * Lantus 45 units SQ x 1 then 0-35 units SQ BID * Lantus 0 units if BSG less than 100 mg/dL * Lantus 20 units if BSG 100-140 mg/dL * Lantus 30 units if BSG 141 - 180 mg/dL * Lantus 35 units if BSG greater than 180 mg/dL * Bolus insulin * NovoLog per scale ACHS or Q6hrs while NPO * Goal Range: Low 110 mg/dL - High 140 mg/dL * Correction Factor: 10 mg/dL/unit * Nutritional / Prandial insulin per carb ratio of 1 unit per 4 grams CHO consumed Outpatient Regimen * Recommend d/c of glimepiride with insulin use. * Recommend continuing other medications. Patient is very basal heavy. Consider starting Novolog with largest meal to shift away from a regimen such as this. Recommend patient follow-up with PCP regarding these medication changes. Thank you.
--- NOTE | 2018-10-12 13:11 | Hospitalist Progress Note ---
Date of Service October 12, 2018 Assessment & Plan (1) Status post lumbar surgery: S/P L2-L5 decompression and fusion on 10/11/[address] Montano because of Spinal Stenosis, Lumbar Region with Neurogenic Claudication Estimated Blood Loss 300ml in the Operating room pre-op Hgb 12.7 on 09/20/18 and postop Hgb 9.1 on 10/12/18 suggestive of acute blood loss from surgery, TRACY drain draining serosanguinous fluid, however patient is asymptomatic and no need for blood transfusion at this time continue to monitor CBC -wound management per ortho especially in regards to the TRACY drain -pain management per ortho -PT/OT -incentive spirometry (2) Diabetes mellitus, type II: 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 Night time medicine doctor gave patient additional insulin. Patient's blood sugar is much improved during the day time of 10/12/18 -advise at this point in time to continued Lantus 35 units BID which is patient's home dose of insulin and then to continue additional sliding scale insulin for meal coverage as needed (3) CAD (coronary artery disease): Hx nonobstructive CAD. Follows with cardiology Dr Alex at [facility] -continue ASA -can resume home dose lisinopril tonight (4) HTN (hypertension): can resume home dose lisinopril tonight DVT Prophylaxis -SCDs Follows with Dr Roberto Dunham at [facility] for routine outpatient care Subjective Overnight on 10/11/18 patient had hyperglycemia with serum glucose above 400 likely due to the dexamethasone 12mg intraoperatively. Night time medicine doctor gave patient additional insulin. Patient's blood sugar is much improved during the day time of 10/12/18 Patient ate lunch at time of the exam. Denies chest pain or shortness of breath. denies acute back pain. TRACY drain from the back draining serosanguinous fluid Physical Exam Vital Signs (Past 24 Hours): Last Vital Signs Temp 37 C 10/12/18 11:31 Pulse 84 10/12/18 11:31 Resp 18 10/12/18 11:31 BP 105/60 10/12/18 11:31 Pulse Ox 97 10/12/18 11:31 Constitutional: WD/WN, vitals as above Eyes: PERRL, conjunctivae normal, anicteric sclerae EOM intact bilaterally ENMT: external ear and nose normal, oropharynx normal Neck: trachea midline, no thyromegaly normal visual inspection Respiratory: normal respiratory effort, lungs clear to auscultation Cardiovascular: Rate/Rhythm: regular rate and regular rhythm Heart Sounds: + murmur Gastrointestinal (Abdomen): normal bowel sounds, soft, nontender, no hepato splenomegaly Musculoskeletal: Head/Neck/Chest: normocephalic and head atraumatic Skin: TRACY drain on back draining serosanguinous fluid Neurologic: PERRL, EOMI, accommodation nl, no face palsy, no dysarthria CN's II-XI intact bilaterally Psychiatric: A+Ox3, euthymic affect
[2018-10-12] MEDS: ASPIRIN 81 MG ECTAB PO SCH (20:38)
[2018-10-12] MEDS: LISINOPRIL 10 MG TAB PO SCH (20:38)
[2018-10-12] MEDS: DOCUSATE SODIUM/SENNA 50/8.6MG TAB PO SCH (20:39)
[2018-10-12] MEDS: INSULIN GLARGINE SOLOSTAR 100 UNITS/ML 3 ML PEN SC SCH (20:40)
[2018-10-13] MEDS: POLYETHYLENE (MIRALAX) 17 GM PACK PO SCH ×3 (05:47→18:28)
[2018-10-13 05:50] LABS: Basophils # (auto) 0.01 K/uL (0-0.2); Basophils % (auto) 0.1 %; Eosinophils # (auto) 0.05 K/uL (0-0.5); Eosinophils % (auto) 0.7 %; Hematocrit (blood only) 27.5 % (42-52); Immature Granulocytes # (auto) 0.03 K/uL (0.00-0.02); Immature Granulocytes % (auto) 0.4 %; Lymphocytes # (auto) 0.96 K/uL (1.2-3.4); Mean Corpuscular Hgb Conc 32.7 g/dL (32-36); Mean Corpuscular Volume 92.3 fL (80-100); Monocytes # (auto) 1.04 K/uL (0.11-0.59); Monocytes % (auto) 14.1 %; Neutrophils # (auto) 5.27 K/uL (1.4-6.5); Neutrophils % (auto) 71.7 %; Platelet Count 152 K/uL (130-400); RDW Coefficient of Variation 14.4 % (11.5-14.5); RDW Standard Deviation 48.6 fL (36.4-46.3); Red Blood Count 2.98 M/uL (4.7-6.1); White Blood Count 7.36 K/uL (4.8-10.8)
[2018-10-13] MEDS: FLUTICASONE PROPIONATE NA SPR 16 GM BTL SCH ×2 (07:31→20:38)
[2018-10-13] MEDS: OMEGA-3 (PURIFIED FISH OIL) 1 GM CAP PO SCH ×2 (07:31→20:38)
[2018-10-13] MEDS: METFORMIN HCL 500 MG TAB PO SCH ×2 (07:33→18:26)
[2018-10-13] MEDS: INSULIN GLARGINE SOLOSTAR 100 UNITS/ML 3 ML PEN SC SCH ×2 (07:33→21:43)
[2018-10-13] MEDS: INSULIN ASPART 100 UNITS/ML 3 ML PEN SC SCH ×4 (07:36→21:42)
--- NOTE | 2018-10-13 08:02 | Hospitalist Progress Note ---
Date of Service October 13, 2018 Assessment & Plan (1) Status post lumbar surgery: S/P L2-L5 decompression and fusion on 10/11/[address] Montano because of Spinal Stenosis, Lumbar Region with Neurogenic Claudication Estimated Blood Loss 300ml in the Operating room pre-op Hgb 12.7 on 09/20/18 and postop Hgb 9.1 on 10/12/18 suggestive of acute blood loss from surgery, TRACY drain draining serosanguinous fluid, and patient asymptomatic Hgb on 10/13/18 is 9 and CBC is stable -wound management per ortho especially in regards to the TRACY drain which is still present as of 10/13/18 -pain management per ortho -PT/OT -incentive spirometry (2) Diabetes mellitus, type II: 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 Night time medicine doctor gave patient additional insulin. Patient's blood sugar is much improved during the day time of 10/12/18 when under the 200s -Have advised to continued Lantus 35 units BID which is patient's home dose of insulin and then to continue additional sliding scale insulin for meal coverage as needed (3) CAD (coronary artery disease): Hx nonobstructive CAD. Follows with cardiology Dr Alex at [facility] known history of heart murmur as per patient -continue ASA -continue home dose lisinopril (4) HTN (hypertension): continue home dose lisinopril DVT Prophylaxis -SCDs Follows with Dr Roberto Dunham at [facility] for routine outpatient care Subjective Glucose continues to be well controlled today. Patient able to sit up from laying down position for physical exam. Continues to have the TRACY drain. Patient reports that he is not in acute pain. Has been ambulatory yesterday with walker. denies chest pain. denies shortness of breath. no vomiting Physical Exam Vital Signs (Past 24 Hours): Last Vital Signs Temp 36.8 C 10/13/18 06:47 Pulse 93 H 10/13/18 06:47 Resp 18 10/13/18 06:47 BP 114/63 10/13/18 06:47 Pulse Ox 95 10/13/18 06:47 Constitutional: WD/WN, vitals as above Eyes: PERRL, conjunctivae normal, anicteric sclerae EOM intact bilaterally ENMT: external ear and nose normal, oropharynx normal Neck: trachea midline, no thyromegaly normal visual inspection Respiratory: normal respiratory effort, lungs clear to auscultation Cardiovascular: Rate/Rhythm: regular rate and regular rhythm Heart Sounds: + murmur Gastrointestinal (Abdomen): normal bowel sounds, soft, nontender, no hepatosplenomegaly Musculoskeletal: Head/Neck/Chest: normocephalic and head atraumatic has TRACY drain to the back Neurologic: PERRL, EOMI, accommodation nl, no face palsy, no dysarthria CN's II-XI intact bilaterally Psychiatric: A+Ox3, euthymic affect
--- NOTE | 2018-10-13 08:48 | Orthopedic Progress Note ---
Date of Service October 13, 2018 Assessment & Plan (1) Status post lumbar surgery: Continue with physical therapy. Maintain TRACY drain. Continue with pain control. Continue with aggressive bowel regimen. DVT prophylaxis is in the form of teds and SCDs. Anticipate discharge home tomorrow. Supervising Physician Co-Signing Physician Notes Dr. Lalo Montano Kory Brown is postoperative day 2 multilevel decompression fusion. Denies radicular leg pain. Back pain is controlled. TRACY drain output last shift was 30 cc. H&H are 9.0 and 27.5 respectively this morning. He is passing flatus. Yesterday in physical therapy he was ambulating 650 feet plus steps. No new complaints Physical Exam Vital Signs (Past 24 Hours): Last Vital Signs Temp 36.8 C 10/13/18 06:47 Pulse 93 H 10/13/18 06:47 Resp 18 10/13/18 06:47 BP 114/63 10/13/18 06:47 Pulse Ox 95 10/13/18 06:47 Physical Exam: Alert and oriented x3. No obvious distress. Lumbar dressing is clean dry and intact. Calves are soft and nontender bilaterally. Strength is intact bilateral lower extremities. Constitutional: WD/WN, vitals as above Eyes: normal visual [place] by confrontation ENMT: external ear and nose normal, oropharynx normal Neck: normal visual inspection Respiratory: normal respiratory effort Gastrointestinal (Abdomen): Inspection/Auscultation: abdomen normal to inspection Musculoskeletal: Extremities: extremities normal to inspection and strength 5/5 throughout Skin: normal turgor Neurologic: deep tendon reflexes 2+ bilaterally and moves all extremities Psychiatric: A+Ox3, euthymic affect
--- NOTE | 2018-10-13 09:18 | Pharmacy Report ---
Glycemic Control Progress Note - Date of Service October 13, 2018 - Scope Glycemic Pharmacist consulted for glycemic control to write orders per [facility] inpatient glycemic control protocol. - Objective Accuchecks BSG(last 24 hours):: 10/12/18 10/12/18 10/12/18 12:03 16:56 20:32 POC Glucose 142 H 139 H 117 H 10/13/18 06:49 POC Glucose 108 H HbA1c:: Hemoglobin A1c 7.8 % (4.5-5.6) H 09/20/18 13:57 - Recent Pertinent Medications The patient is currently receiving: * Basal insulin: Lantus 0-35 units every 12 hours * Correctional Insulin: Novolog Correction per scale ACHS Goal Range: Low 110 mg/dL - High 140 mg/dL Correction Factor: 12 mg/dL/unit * Prandial insulin: Per carb ratio of 1 unit per 5 grams CHO consumed - Outpatient Anti-Diabetic Meds Levemir 35 units BID glimepiride 4 mg daily metformin 1 gm PO BID - Assessment & Plan ASSESSMENT: * See progress note from 10/12/18 for more background info, in short: * Pt receiving SQ basal bolus insulin regimen for hyperglycemia secondary to baseline DM (outpatient regimen on hold) and POD 2 for lumbar surgery (received dexamethasone 12 mg IV x 1 in OR) * Patient is currently receiving an average of 98 units of insulin per day * 65 units of basal insulin * 33 units of prandial/correctional insulin * BSGs ranging 117 - 168 mg/dl over the past 24hrs * Changes needed to insulin regimen: * AM Fasting BSG = 108 mg/dl. This is in goal range for patient based on inpatient targets and co-morbidities. Therefore Basal insulin will be continued. Slightly changed scale to provide highest dose of 30 units. * Post-prandial BSGs are trending downwards throughout the day (insulin stacking) therefore need to loosen CF/CR. * Total daily dose = ~80 units. PLAN FOR INPATIENT GLYCEMIC CONTROL: * Decreasing Lantus to 0-30 units SQ BID (hold if BSG less than 120 mg/dL; BSG 120-180 mg/dL Lantus 20 units; BSG greater than 180 mg/dL Lantus 30 units) * Loosening correction factor to 18 mg/dl/unit * Loosening carb ratio to 1 unit per 6 grams CHO consumed * Continuing goal range to Low 110 mg/dL - High 140 mg/dL * Restart metformin in preparation for discharge. RECOMMENDATIONS FOR DISCHARGE: * Recommend d/c of glimepiride with insulin use. * Recommend continuing other medications. Patient is very basal heavy. Consider starting Novolog with largest meal to shift away from a regimen such as this. Recommend patient follow-up with PCP regarding these medication changes. * Please note that the plan above was derived based on current level of insulin resistance and hospital stress. These recommendations are appropriate for inpatient admission only. Plan of care upon discharge will need to be reassessed to avoid potential outpatient hypo/hyperglycemia. Thank you.
[2018-10-13] MEDS: LISINOPRIL 10 MG TAB PO SCH (20:38)
[2018-10-13] MEDS: ASPIRIN 81 MG ECTAB PO SCH (20:38)
[2018-10-13] MEDS: DOCUSATE SODIUM/SENNA 50/8.6MG TAB PO SCH (20:40)
[2018-10-14] MEDS: FLUTICASONE PROPIONATE NA SPR 16 GM BTL SCH (07:38)
[2018-10-14] MEDS: METFORMIN HCL 500 MG TAB PO SCH (07:38)
[2018-10-14] MEDS: OMEGA-3 (PURIFIED FISH OIL) 1 GM CAP PO SCH (07:39)
[2018-10-14] MEDS: INSULIN ASPART 100 UNITS/ML 3 ML PEN SC SCH (07:40)
[2018-10-14] MEDS: INSULIN GLARGINE SOLOSTAR 100 UNITS/ML 3 ML PEN SC SCH (07:44)
--- NOTE | 2018-10-14 07:46 | Anesthesiology Progress Note ---
Date of Service October 14, 2018 Anesthesia Post Procedure Vital Signs Vital Signs: Temp Pulse Resp BP BP Pulse Ox 10/14/18 06:35 37.2 C 84 18 92/51 L 98 10/13/18 23:06 37.5 C 90 18 111/65 96 10/13/18 15:15 37.7 C H 96 H 18 124/65 95 Pain Intensity Lower Back: Pain Intensity: 2 Notes Mental Status: alert / awake / arousable Patient Amnestic to Procedure: Yes Nausea / Vomiting: adequately controlled Pain: adequately controlled Airway Patency, RR, SpO2: stable & adequate BP & HR: stable & adequate Hydration State: stable & adequate Anesthetic Complications: no major complications apparent and Pt Satisfied with anesthetic care
--- NOTE | 2018-10-14 08:28 | Hospitalist Progress Note ---
Date of Service October 14, 2018 Assessment & Plan (1) Status post lumbar surgery: S/P L2-L5 decompression and fusion on 10/11/[address] Montano because of Spinal Stenosis, Lumbar Region with Neurogenic Claudication Estimated Blood Loss 300ml in the Operating room pre-op Hgb 12.7 on 09/20/18 and postop Hgb 9.1 on 10/12/18 suggestive of acute blood loss from surgery, TRACY drain draining serosanguinous fluid, and patient asymptomatic Hgb on 10/13/18 is 9 and CBC is stable continues to have the TRACY drain with serosanguinous fluid. 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 Night time medicine doctor gave patient additional insulin. Patient's blood sugar is much improved during the day time of 10/12/18 when under the 200s -Have advised to continued Lantus 35 units BID which is patient's home dose of i nsulin and additional sliding scale insulin for meal coverage as needed while inpatient (3) CAD (coronary artery disease): Hx nonobstructive CAD. Follows with cardiology Dr Alex at [facility] known history of heart murmur as per patient -continue ASA -continue home dose lisinopril (4) HTN (hypertension): had been continued on home dose lisinopril AM blood pressure recorded to be low as 92/51 but this may have been down when patient lying flat or just waking up; give IV fluids and check CBC DVT Prophylaxis -SCDs Follows with Dr Roberto Dunham at [facility] for routine outpatient care Subjective AM blood pressure recorded to be low as 92/51 but this may have been down when patient lying flat or just waking up. Patient seen and examined. Sitting up on the bed unde rown power. Denies lightheadedness. denies pain. no chest pain. no shortness of breath. patient continues to have TRACY drain with serosanguinous fluid Physical Exam Vital Signs (Past 24 Hours): Last Vital Signs Temp 37.2 C 10/14/18 06:35 Pulse 84 10/14/18 06:35 Resp 18 10/14/18 06:35 BP 92/51 L 10/14/18 06:35 Pulse Ox 98 10/14/18 06:35 Constitutional: no distress Eyes: PERRL, conjunctivae normal, anicteric sclerae EOM intact bilaterally ENMT: external ear and nose normal, oropharynx normal Neck: trachea midline, no thyromegaly normal visual inspection Respiratory: normal respiratory effort, lungs clear to auscultation Cardiovascular: Rate/Rhythm: regular rate and regular rhythm Heart Sounds: + murmur Gastrointestinal (Abdomen): normal bowel sounds, soft, nontender, no hepatosplenomegaly Musculoskeletal: Head/Neck/Chest: normocephalic and head atraumatic TRACY drain with serosanguinous fluid Neurologic: PERRL, EOMI, accommodation nl, no face palsy, no dysarthria CN's II-XI intact bilaterally Psychiatric: A+Ox3, euthymic affect
[2018-10-14] MEDS ORDERED: SODIUM CHLORIDE 0.9% 500 ML IV SCH (08:30)
[2018-10-14 08:53] LABS: Basophils # (auto) 0.02 K/uL (0-0.2); Basophils % (auto) 0.3 %; Eosinophils # (auto) 0.07 K/uL (0-0.5); Eosinophils % (auto) 0.9 %; Hematocrit (blood only) 31.5 % (42-52); Hemoglobin 10.3 g/dL (14.0-18.0); Immature Granulocytes # (auto) 0.02 K/uL (0.00-0.02); Immature Granulocytes % (auto) 0.3 %; Lymphocytes # (auto) 1.27 K/uL (1.2-3.4); Lymphocytes % (auto) 16.3 %; Mean Corpuscular Volume 93.8 fL (80-100); Mean Platelet Volume 8.9 fL (7.4-10.4); Monocytes # (auto) 0.85 K/uL (0.11-0.59); Monocytes % (auto) 10.9 %; Neutrophils # (auto) 5.54 K/uL (1.4-6.5); Neutrophils % (auto) 71.3 %; Platelet Count 175 K/uL (130-400); RDW Standard Deviation 48.2 fL (36.4-46.3); Red Blood Count 3.36 M/uL (4.7-6.1); White Blood Count 7.77 K/uL (4.8-10.8)
[2018-10-14 08:57] LABS: Mean Corpuscular Hgb Conc 32.7 g/dL (32-36)
[2018-10-14] MEDS ORDERED: INSULIN GLARGINE SOLOSTAR 100 UNITS/ML 3 ML PEN SC ONE (09:00)
--- NOTE | 2018-10-14 09:46 | Discharge Summary ---
Date of Service October 14, 2018 Admission HPI Per Admitting Provider Presents with chronic persistent back and leg pain. After failing extensive course of nonoperative care is here for surgical intervention. Principal Diagnosis Lumbar spinal stenosis with neurogenic claudication Discharge Data Allergies Allergy/AdvReac Type Severity Reaction Status Date / Time Penicillins Allergy Intermediate Hives Verified 10/11/18 07:56 Consultations 10/11/18 13:55 Consult Case Management - Discharge Planning Routine Consult Hospitalist Routine Procedures Performed Operation Date: 10/11/18 09:05 Actual Procedures p L2-L5 Decompression and Fusion, L3-L4 Interbody (Not Applicable) - Lalo Montano DO Ordered Studies 10/11/18 [place] fluoroscopy <1hr Routine [place] lumbar spine 2-3V Routine Hospital Course (1) Spinal stenosis, lumbar region with neurogenic claudication: Patient underwent multilevel lumbar decompression fusion tolerated this well was taken to the orthopedic floor postoperative. Postop day 1 he was up and ambulating nicely. He progressed to postop day #2. TRACY drain decreasing appropriately. Bowels working well. Subsequent discharge home on postop day #3. Discharge orders and instructions found in chart for further review. Total Time Total Time Spent Total Time Spent (In Minutes): Not applicable Discharge Plan Discharge Items Patient Disposition: Home - Self-Care Reason For Visit: Spinal Stenosis, Lumbar Region with Neurogenic Cla Discharge Diagnosis: lumbar stenosis Discharge Goals: Decrease discomfort Activity: Per 'Additional Instructions' section Non-emergency contact: Primary Care Provider Call non-emergency contact if: you have any medication questions Follow-up/Referrals: Roberto Dunham MD [Primary Care Provider] - Diet: Regular Addtl Provider Instructions: ACTIVITY RECOMMENDATIONS: SELF CARE INSTRUCTIONS AFTER THORACIC/LUMBAR FUSIONS 1. You may walk to your tolerance. It is good exercise for your legs and back. Expect some back and intermittent leg aches and pains. 2. You may perform "counter-top" level activities (make a sandwich, jennifer with a project, etc.). 3. No bending or lifting of more than 10 pounds or back twisting of any nature (roll like a log when turning in bed). 4. You may ride in a car for 20-30 minutes at a time. No driving until after your first visit with your doctor. 5. Frequent changes of position and restricting sitting to 30 minutes at a time will help limit the amount of back spasms and stiffness you may experience. 6. You may discontinue the use of ambulatory aids (cane, crutches, etc.) once your strength and confidence allow. 7. You may bobbin hauler the shower and let water strike your incision when you arrive home at least once daily. Do not take a tub bath, sit in a hot tub or go into a swimming pool until after your first recheck in the office. SPECIAL CARE INSTRUCTIONS: VERY IMPORTANT TO READ AND REVIEW A. Your surgical incision has been closed with a cosmetic suture under the skin that will dissolve in about 6 weeks. In 14 days, you can use a pair of clean scissors and cut the suture that is left outside of the skin at the ends of your incision. 1. The small skin tapes can be removed 7 days after surgery if they have not fallen off by that point. 2. You may keep the wound open to air as much as possible to promote healing after post-op day number 5 unless told otherwise by your doctor. 3. If you think the wound looks like it is becoming infected (redness or worsening drainage) and/or you are experiencing fever, chill or worsening back pain and muscle spasms, contact the office so that we may evaluate you as soon as possible. B. Complications are uncommon, but please contact us if you have any signs or symptoms of: 1. wound infection (fever higher than 102.5 degrees F, redness, separation of wound, drainage, or increasing pain from the incision) 2. blood clots in legs (pain, swelling, redness and warmth in legs) 3. urinary tract infection (fever higher than 102.5 degrees F, burning upon urination or increased frequency of urination) 4. nerve problems (inability to walk on your toes or heels, numbness, loss of bowel or bladder control) 5. any other symptoms that concern you C. Please call the office at if you have any concerns or questions about your operation or recovery. D. No smoking! Smoking drastically decreases the chance of a solid fusion. E. Do not take any anti-inflammatory medications (Indocin, Advil, Motrin, Aspirin, Naprosyn, etc.) as these may inhibit the chance of a solid fusion. Tylenol is okay to take for pain. MANAGING PAIN AFTER SPINAL SURGERY 1. Narcotic medication is intended for short-term use and will be provided for surgical pain. Surgical pain usually lasts for a period of 4-6 weeks. Narcotic medication includes Percocet, Vicodin, Darvocet, Tylenol #3 or Lortab. 2. Longer-term pain is more appropriately treated with non-narcotic medication such as Tylenol ES. 3. Muscle spasm is not appropriately treated with narcotics. Muscle relaxers such as Soma, Flexeril or Skelaxin can be used along with Tylenol ES. 4. Remember that we all live with some "aches and pains". This is not unusual or uncommon after an injury or as we get older. a. Back pain is expected and may include muscle spasms for 4 to 6 weeks after surgery. The pain should gradually improve. If the pain worsens for no apparent reason, please contact the office. b. Intermittent leg pain may also be experienced and should not be concerned about unless it worsens for no apparent reason. If so, please contact the office. 5. We will provide appropriate medication within the normal guidelines of their prescribed use. We will also be very cautious and aware of potential abuse and extended duration of patients' medication needs. a. Pain medications are for your comfort and to assist with sleep and rest so that the tissue can heal. They are not provided in order to return to normal activity and should not be used through the day. To do so or worsening pain at night can result from ongoing tissue damage and development of tolerance to the prescribed medicine. 6. Please allow 2-3 days to process refills. Prescriptions will not be mailed but must be picked up at the office. FOLLOW UP VISIT: Keep your scheduled follow-up appointment. Any questions, please call the office at . Prescriptions: New tramadol 50 mg Tablet 50 mg PO Q4H PRN (Reason: Pain) Qty: 30 RF: 0 Continued metformin 500 mg Tablet 1,000 mg PO BID RF: 0 aspirin 81 mg Tablet,Delayed Release (Dr/Ec) 81 mg PO QPM RF: 0 glimepiride 4 mg Tablet 4 mg PO QAM RF: 0 naproxen sodium [Aleve] 220 mg Tablet 1 - 2 tab PO QAM RF: 0 lisinopril 30 mg Tablet 30 mg PO QPM RF: 0 Levemir U-100 Insulin 100 unit/mL Solution 35 unit SUBCUT BID RF: 0 fluticasone propionate [Flonase Allergy Relief] 50 mcg/actuation [place],Suspension 1 spray INTRANASAL BID RF: 0 Fish Oil 1 cap PO BID RF: 0 Stand-Alone Forms: [facility]/Other Patient Handouts: Surgery Prevent DVT After Discharge Orders: Discharge Order (Routine); Ordered 10/14/18 Ordered By: Lalo Montano Admission Data Admit Date/Time: 10/11/18 12:32 Attending Provider: Lalo Montano Admit Provider: Lalo Montano Primary Care Provider: Roberto Dunham Other Providers: Kevin Elizabeth Service: Surgical Services
== END 2018-10-14 11:55 | disposition home or self-care (01) | DRG 454 ==
LOC: ASU 07:08 → 3E 12:32